=== PATIENT | male | born 1970 | race African-American/Black ===

== ENCOUNTER 2021-06-13 19:54 | Emergency (ER) | payer MEDICAID, SELFPAY ==
[2021-06-13 20:06] VITALS: BP 125/65; PULSE 69; RESP 19; TEMP 36.9; O2SAT 98; BMI 27.9
--- NOTE | 2021-06-13 20:11 | CT_ITS ---
PROCEDURE INFORMATION: Exam: CT Abdomen And Pelvis With Contrast Exam date and time: 06/13/2021 8:11 PM Age: 51 years old Clinical indication: Injury or trauma; Other: Swinging on swing and hit tree with left side body; Blunt; Generalized; Injury date: 06/13/2021; Additional info: Blunt trauma TECHNIQUE: Imaging protocol: Computed tomography of the abdomen and pelvis with contrast. Radiation optimization: All CT scans at this facility use at least one of these dose optimization techniques: automated exposure control; mA and/or kV adjustment per patient size (includes targeted exams where dose is matched to clinical indication); or iterative reconstruction. Contrast material: ISOVUE; Contrast volume: 100 ml; Contrast route: IV; COMPARISON: CR XR PELVIS 1-2V 06/13/2021 9:03 PM FINDINGS: Lungs: There are scattered chronic interstitial changes noted at the lung bases. No evidence of consolidation. No pleural effusion. Liver: The liver is normal in size and attenuation. No intrahapatic biliary dilitation. Gallbladder and bile ducts: Normal. No calcified stones. No ductal dilation. Gallbladder wall thickness is normal. Pancreas: Normal. No ductal dilation. Spleen: Normal. No splenomegaly. Granulomatous calcification of the spleen is identified. Adrenal glands: Normal. No mass. Kidneys and ureters: Normal. No hydronephrosis. Stomach and bowel: Unremarkable. No obstruction. No mucosal thickening. Small bowel mesentery is normal. Appendix: Unremarkable. Intraperitoneal space: Unremarkable. No free air. No significant fluid collection. Vasculature: Atheromatous arterial calcification identified. No abdominal aortic aneurysm. Lymph nodes: Unremarkable. No enlarged lymph nodes. Urinary bladder: Unremarkable as visualized. Reproductive: Unremarkable as visualized. Bones/joints: Degenerative changes of the spine, sacroiliac joints, and hips identified. No acute fracture. Soft tissues: There is a small umbilical hernia identified which contains portions of the omentum. IMPRESSION: No acute findings.
--- NOTE | 2021-06-13 20:11 | CT_ITS ---
PROCEDURE INFORMATION: Exam: CTA Chest With Contrast Exam date and time: 06/13/2021 9:26 PM Age: 51 years old Clinical indication: Injury or trauma; Blunt trauma (contusions or hematomas); Injury date: 06/13/2021; Patient HX: Swinging on swing and hit tree with left side body TECHNIQUE: Imaging protocol: Computed tomographic angiography of the chest with contrast. 3D rendering (Not supervised by radiologist): MIP and/or 3D reconstructed images were created by the technologist. Radiation optimization: All CT scans at this facility use at least one of these dose optimization techniques: automated exposure control; mA and/or kV adjustment per patient size (includes targeted exams where dose is matched to clinical indication); or iterative reconstruction. Contrast material: ISOVUE 370; Contrast volume: 100 ml; Contrast route: INTRAVENOUS (IV); COMPARISON: CR XR CHEST 2V 06/13/2021 8:59 PM FINDINGS: Pulmonary arteries: The pulmonary trunk, main, and branch pulmonary arteries contain no filling defects. Aorta: Unremarkable. No aortic aneurysm. No aortic dissection. Lungs: There are scattered calcified granulomas noted within the right lung. Chronic parenchymal changes are noted within both mid and lower lung zones. No evidence of alveolar consolidation. There is no evidence of pulmonary vascular congestion. Pleural spaces: Unremarkable. No pneumothorax. No pleural effusion. Heart: No cardiomegaly. No pericardial effusion. Heart RV/LV ratio: Within normal limits. Coronary arteries: There is no evidence of significant coronary artery calcifications. Mediastinal space: No evidence of mediastinal or hilar mass. Lymph nodes: There are granulomatous calcifications within unenlarged right hilar lymph nodes. Bones/joints: There is a fracture along the anterior aspect of the left 1st rib. A fracture which is mildly displaced along the lateral aspect of the left 3rd rib. There is a nondisplaced fracture of the lateral aspect of the left 5th rib. There is a nondisplaced fracture of the posterolateral aspect of the left 6th rib. There is a nondisplaced fracture posterolateral aspect of the left 7th rib. Soft tissues: Unremarkable. IMPRESSION: 1. There are fractures of the left 1st, 3rd, 5th, 6th, and 7th ribs. No evidence of underlying pneumothorax or pleural effusion. 2. Chronic parenchymal changes within both lung salcedo. No evidence of consolidation or pulmonary vascular congestion. 3. Old healed granulomatous disease noted within the right lung and right hilus.
--- NOTE | 2021-06-13 20:11 | XR_ITS ---
PROCEDURE INFORMATION: Exam: XR Chest Exam date and time: 06/13/2021 8:11 PM Age: 51 years old Clinical indication: Injury or trauma; Other: Swinging on swing and hit tree; Blunt trauma (contusions or hematomas); Injury date: 06/13/2021 TECHNIQUE: Imaging protocol: XR of the chest. Views: 2 views. COMPARISON: No relevant prior studies available. FINDINGS: Lungs: Unremarkable. No consolidation. Pleural spaces: Unremarkable. No pleural effusion. No pneumothorax. Heart/Mediastinum: Unremarkable. No cardiomegaly. Bones/joints: Unremarkable. IMPRESSION: No acute findings.
[2021-06-13 20:22] LABS: Basophils # 0.1 K/mm3 (0-0.2); Basophils % 0.5 % (0.1-2.0); Eosinophils # 0.2 K/mm3 (0.0-0.4); Eosinophils % 1.3 % (0.1-12.0); Hematocrit 46.6 % (42.0-52.0); Hemoglobin 14.5 g/dL (14.1-18.0); Lymphocytes # 1.5 K/mm3 (0.7-4.5); Lymphocytes % 11.5 % (10-50); Mean Corpuscular HGB Conc 31.1 g/dL (31.8-35.4); Mean Corpuscular Hemoglobin 28.8 pg (27.0-31.2); Mean Corpuscular Volume 92.6 fl (80-94); Mean Platelet Volume 7.8 fl (7.4-10.4); Monocytes # 0.7 K/mm3 (0.1-1.0); Monocytes % 5.2 % (1.7-9.3); Neutrophils # 10.7 K/mm3 (1.8-7.8); Neutrophils % 81.4 % (37.0-80.0); Platelet Count 326 K/mm3 (142-424); Red Blood Count 5.03 M/mm3 (4.60-6.20); Red Cell Distribution Width 15.5 % (11.5-17.5); White Blood Count 13.2 K/mm3 (4.8-10.8)
[2021-06-13 20:26] LABS: Chloride 104 mmol/L (98-107); Potassium 4.1 mmoL/L (3.5-5.1); Sodium 140 mmol/L (136-145)
[2021-06-13 20:29] LABS: Alanine Aminotransferase 26 U/L (12-78); Albumin Level 4.7 g/dl (3.5-5.0); Albumin/Globulin Ratio 1.4 (1.1-1.8); Alkaline Phosphatase 82 U/L (38-126); Anion Gap 14.1 mEq/L (5-15); Aspartate Amino Transferase 62 U/L (17-59); Bilirubin,Total 0.4 mg/dl (0.2-1.3); Blood Urea Nitrogen 14 mg/dl (9-20); Calcium 9.9 mg/dl (8.4-10.2); Carbon Dioxide 26 mmol/L (22.0-30.0); Creatinine Clearance Estimated 92 mL/min (50-200); Estimated Glomerular Filt Rate 64 ml/min (>60); GFR (African American) 78 ML/MIN (>60); Globulin 3.4 g/dL (1.3-3.2); Glucose 90 mg/dl (74-100); Lipase 44 U/L (23-300); Total Protein,Serum 8.1 g/dl (6.3-8.2)
--- NOTE | 2021-06-13 20:44 | CT_ITS ---
PROCEDURE INFORMATION: Exam: CT Head Without Contrast Exam date and time: 06/13/2021 8:44 PM Age: 51 years old Clinical indication: Injury or trauma; Other: Swinging and hit a tree; Blunt trauma (contusions or hematomas); Without loss of consciousness; Injury date: 06/13/2021; Injury details: Swingin on rope and hit tree with left head; Additional info: Collided with tree TECHNIQUE: Imaging protocol: Computed tomography of the head without contrast. 3D rendering (Not supervised by radiologist): MIP and/or 3D reconstructed images were created by the technologist. Radiation optimization: All CT scans at this facility use at least one of these dose optimization techniques: automated exposure control; mA and/or kV adjustment per patient size (includes targeted exams where dose is matched to clinical indication); or iterative reconstruction. COMPARISON: No relevant prior studies available. FINDINGS: Brain: No intracranial hemorrhage. No mass. Prominent sulcus vs encephalomalacia RIGHT occipital region. No edema. Cerebral ventricles: No hydrocephalus. Paranasal sinuses: No acute sinusitis. Mastoid air cells: No significant effusion. Orbital cavity: Unremarkable as visualized. Bones/joints: No acute fracture. Soft tissues: Minimal scalp swelling. Small calcification or foreign body along LEFT frontal scalp. IMPRESSION: No intracranial hemorrhage.
--- NOTE | 2021-06-13 20:44 | CT_ITS ---
PROCEDURE INFORMATION: Exam: CT Cervical Spine Without Contrast Exam date and time: 06/13/2021 8:44 PM Age: 51 years old Clinical indication: Injury or trauma; Other: Swinging and hit tree with left head; Blunt trauma; Injury date: 06/13/2021; Additional info: Collided with tree TECHNIQUE: Imaging protocol: Computed tomography images of the cervical spine without contrast. Radiation optimization: All CT scans at this facility use at least one of these dose optimization techniques: automated exposure control; mA and/or kV adjustment per patient size (includes targeted exams where dose is matched to clinical indication); or iterative reconstruction. COMPARISON: No relevant prior studies available. FINDINGS: Bones/joints: No acute fracture. Normal alignment. Discs/Spinal canal/Neural foramina: [id number] degenerative disc disease within mid cervical spine. Early degenerative disc disease within lower cervical spine. Mild indentation thecal sac/cord mid cervical spine. Mild indentation thecal sac/cord lower cervical spine. Thyroid: Subcentimeter nodule LEFT lobe. Lungs: Minimal bullous changes within lung apices. Soft tissues: Unremarkable. IMPRESSION: No fracture. COMMENTS: Consistent with the [employer]'s Incidental Findings Committee white paper (J Am Cornel Radiol 2015): In patients aged 35 years and older with an incidental thyroid nodule equal to or greater than 1.[address], MRI or extrathyroidal US, further evaluation with dedicated thyroid US is recommended for patients with normal life expectancy and without comorbidities. For smaller nodules without suspicious features, no further evaluation or follow up is recommended.
--- NOTE | 2021-06-13 21:05 | XR_ITS ---
PROCEDURE INFORMATION: Exam: XR Pelvis Exam date and time: 06/13/2021 9:05 PM Age: 51 years old Clinical indication: Injury or trauma; Fall; Blunt trauma (contusions or hematomas); Does not apply; Pelvic region; Injury date: 06/13/2021; Injury details: Swinging on rope swing and hit tree; Additional info: Collision with tree TECHNIQUE: Imaging protocol: XR pelvis. Views: 1 or 2 view. COMPARISON: No relevant prior studies available. FINDINGS: Bones/joints: There are periacetabular calcifications identified. These may represent unfused apophysis ease or be the result of early osteoarthritis of the hips. No acute fracture. Soft tissues: Unremarkable. IMPRESSION: No acute findings.
--- NOTE | 2021-06-13 21:11 | [facility].EDTRAUMA ---
ED Disposition Clinical Impression: Ribs, multiple fractures Qualifiers: Encounter type: initial encounter Fracture type: closed Laterality: left Qualified Code(s): S22.42XA - Multiple fractures of ribs, left side, initial encounter for closed fracture Concussion Qualifiers: Encounter type: initial encounter Loss of consciousness presence/duration: without LOC Qualified Code(s): S06.0X0A - Concussion without loss of consciousness, initial encounter Facial laceration Qualifiers: Encounter type: initial encounter Qualified Code(s): S01.81XA - Laceration without foreign body of other part of head, initial encounter Disposition: Home, Self-Care Condition on Discharge: Good Instructions: DI for Rib Fracture Additional Instructions: fluids and sutures out 8 days and see pcp for follow up Prescriptions: Ketorolac Tromethamine [Toradol 10mg tablet] 10 mg PO Q6HP PRN #10 tab MDD 40mg/day PRN Reason: Moderate To Severe Pain Prescription Printed Referrals: Ashkan Higgins [Primary Care Provider] - - Critical Care Critical Care Time: No Attestation: On 06/13/21, the high probability of a clinically significant, sudden or life threatening deterioration of the following system(s) required my full and direct attention, intervention and personal management. The time I documented below is in addition to time spent performing reported procedures but includes the following listed in this critical care notation. Medical Decision Making - Medical Records Medical records reviewed: Yes: I reviewed the patient's medical records. - Phil Inquiry Pt receiving controlled substance: No Vital Signs: 06/13/21 20:06 Temperature 98.5 F Temperature Source Oral Pulse Rate [Right Brachial] 69 Respiratory Rate 19 Blood Pressure [Right Arm] 125/65 Blood Pressure Mean [Right Arm] 85 Blood Pressure Source [Right Arm] Automatic Cuff Blood Pressure Position [Right Arm] Sitting 02 Sat by Pulse Oximetry 98 Oxygen Delivery Method Room Air - Lab Data Lab results reviewed: Yes: I reviewed the patient's lab results. Lab Results 06/13/21 20:11: WBC 13.2 H, RBC 5.03, Hgb 14.5, Hct 46.6, MCV 92.6, MCH 28.8, MCHC 31.1 L, RDW 15.5, Plt Count 326, MPV 7.8, Neut % (Auto) 81.4 H, Lymph % (Auto) 11.5, [place] % (Auto) 5.2, Eos % (Auto) 1.3, Baso % (Auto) 0.5, Neut # (Auto) 10.7 H, Lymph # (Auto) 1.5, [place] # (Auto) 0.7, Eos # (Auto) 0.2, Baso # (Auto) 0.1 06/13/21 20:11: Sodium 140, Potassium 4.1, Chloride 104, Carbon Dioxide 26, Anion Gap 14.1, BUN 14, Creatinine 1.20, Estimated Creat Clear 92, Estimated GFR 64, Est GFR ( Amer) 78, Glucose 90, Calcium 9.9, Total Bilirubin 0.4, AST 62 H, ALT 26, Alkaline Phosphatase 82, Total Protein 8.1, Albumin 4.7, Globulin 3.4 H, Albumin/Globulin Ratio 1.4, Lipase 44 Result diagrams: 06/13/21 20:11 06/13/21 20:11 Orders (Tests/Meds): ED MEDICATIONS Generic Name Dose Route Start Last Admin Trade Name Freq PRN Reason Stop Dose Admin Sodium Chloride 10 ml 06/13/21 22:07 06/13/21 21:30 Sodium Chloride 0.9% 10ml Syr (Rad Only) IV 07/13/21 22:06 10 ml NEEDED PRN Administration Maintain IV Site Discontinued Medications Generic Name Dose Route Start Last Admin Trade Name Freq PRN Reason Stop Dose Admin Acetaminophen/Codeine Phosphate 1 maria [place] carmen 06/13/21 22:48 Acetaminophen 300mg W/Codeine 30mg Take Home Pack (6) PO 06/13/21 22:49 ONCE ONE Iopamidol 100 ml 06/13/21 22:07 06/13/21 22:09 Iopamidol-370 (76%);100ml Bottle IV 06/13/21 22:08 100 ml ONCE ONE Administration Ketorolac Tromethamine 30 mg 06/13/21 22:48 Ketorolac 30mg/Ml Vial IV 06/13/21 22:49 ONCE ONE Sodium Chloride 40 ml 06/13/21 22:07 06/13/21 22:09 0.9 % Sodium Chloride 50 Ml Vial IV 06/13/21 22:08 40 ml ONCE ONE Administration ORDERS Category Date Time Status CT abdomen pelvis w con Stat Cat Scan 06/13/21 20:[address] cervical spine wo con Stat Cat Scan
[2021-06-13 23:02] VITALS: BP 126/62; PULSE 70; RESP 17; TEMP 36.8; O2SAT 98
== END 2021-06-13 23:04 | disposition home or self-care (01) ==
PROVIDERS: Emergency Provider Emergency Medicine; PCP Neurological Surgery
DX: S01.81XA Laceration without foreign body of other part of head, initial encounter (principal); S06.0X0A Concussion without loss of consciousness, initial encounter; S22.42XA Multiple fractures of ribs, left side, initial encounter for closed fracture; W22.09XA Striking against other stationary object, initial encounter; Y92.89 Other specified places as the place of occurrence of the external cause; F17.210 Nicotine dependence, cigarettes, uncomplicated
CPT/HCPCS: 12011; 70450; 71046; 71275; 72125; 72170; 74177; 80053; 83690; 85025; 96374; 99282; Q9967

== ENCOUNTER 2022-06-26 19:03 | Emergency (ER) | payer MEDICAID, SELFPAY ==
[2022-06-26] VITALS (7 sets, daily range): BP systolic 127–147; BP diastolic 74–87; PULSE 55–80; RESP 16–24; TEMP 36.5–36.6; O2SAT 97–100; BMI 28.4
--- NOTE | 2022-06-26 19:44 | CT_ITS ---
PROCEDURE INFORMATION: Exam: CTA Chest With Contrast Exam date and time: 06/26/2022 7:59 PM Age: 52 years old Clinical indication: Injury or trauma; Fall; Blunt trauma (contusions or hematomas); Additional info: Fall rib pain bilateral TECHNIQUE: Imaging protocol: Computed tomographic angiography of the chest with contrast. 3D rendering (Not supervised by radiologist): MIP and/or 3D reconstructed images were created by the technologist. Radiation optimization: All CT scans at this facility use at least one of these dose optimization techniques: automated exposure control; mA and/or kV adjustment per patient size (includes targeted exams where dose is matched to clinical indication); or iterative reconstruction. Contrast material: ISOVUE; Contrast volume: 100 ml; Contrast route: INTRAVENOUS (IV); COMPARISON: SD CT ANGIO CHEST PE PROTOCOL 06/13/2021 9:26 PM FINDINGS: Pulmonary arteries: Normal. No pulmonary emboli. Aorta: Unremarkable. No aortic aneurysm. No aortic dissection. Lungs: The lungs are negative for consolidation or dominant mass. Patchy interstitial and ground-glass infiltrates are no longer present. Pleural spaces: No evidence of pneumothorax or effusion. Heart: Unremarkable. No cardiomegaly. No pericardial effusion. Mediastinal space: Calcified granulomas within the mediastinum and hilar structures. Lymph nodes: Prominent lymph nodes in the left axillary and to a lesser extent right axillary chains. Unchanged compared to the prior studies. Bones/joints: Degenerative spondylosis, rotoscoliosis and facet arthropathy within the spine. Fractures of the left 1st, 3rd, 5th, 6th, and 7th ribs have resolved. Soft tissues: Unremarkable. IMPRESSION: 1. No evidence to confirm acute process. 2. Prominent lymph nodes in the left axillary and to a lesser extent right axillary chains. Unchanged compared to the prior studies. 3. Degenerative spondylosis, rotoscoliosis and facet arthropathy within the spine. 4. Fractures of the left 1st, 3rd, 5th, 6th, and 7th ribs have resolved. 5. Patchy interstitial and ground-glass infiltrates are no longer present.
--- NOTE | 2022-06-26 19:44 | CT_ITS ---
PROCEDURE INFORMATION: Exam: CTA Abdomen and Pelvis With Contrast Exam date and time: 06/26/2022 7:59 PM Age: 52 years old Clinical indication: Injury or trauma; Fall; Blunt trauma; Lower abdominal or back area; Bilateral TECHNIQUE: Imaging protocol: Computed tomographic angiography of the abdomen and pelvis with contrast. 3D rendering (Not supervised by radiologist): MIP and/or 3D reconstructed images were created by the technologist. Radiation optimization: All CT scans at this facility use at least one of these dose optimization techniques: automated exposure control; mA and/or kV adjustment per patient size (includes targeted exams where dose is matched to clinical indication); or iterative reconstruction. Contrast material: ISOVUE; Contrast volume: 100 ml; Contrast route: INTRAVENOUS (IV); COMPARISON: CT ABDOMEN PELVIS W CON 06/13/2021 9:26 PM FINDINGS: Aorta: No aortic aneurysm. No aortic dissection. Celiac trunk and mesenteric arteries: No occlusion or significant stenosis. Renal arteries: No occlusion or significant stenosis. Right iliac arteries: No occlusion or significant stenosis. Left iliac arteries: No occlusion or significant stenosis. Liver: No mass. Gallbladder and bile ducts: Unremarkable. No calcified stones. No ductal dilation. Pancreas: Unremarkable. No mass. No ductal dilation. Spleen: Unremarkable. No splenomegaly. Adrenal glands: Unremarkable. No mass. Kidneys and ureters: Unremarkable. No solid mass. No hydronephrosis. Stomach and bowel: Unremarkable. No obstruction. No mucosal thickening. Appendix: No evidence of appendicitis. Intraperitoneal space: Unremarkable. No free air. No significant fluid collection. Lymph nodes: Unremarkable. No enlarged lymph nodes. Urinary bladder: Unremarkable. No mass. Reproductive: Unremarkable as visualized. Bones/joints: No acute fracture. Soft tissues: Unremarkable. IMPRESSION: 1. No evidence for acute vascular injury on CTA of abdomen and pelvis. 2. No evidence of solid organ injury is detected.
--- NOTE | 2022-06-26 19:44 | CT_ITS ---
PROCEDURE INFORMATION: Exam: CT Thoracic Spine Without Contrast Exam date and time: 06/26/2022 7:55 PM Age: 52 years old Clinical indication: Injury or trauma; Fall; Blunt trauma (contusions or hematomas) TECHNIQUE: Imaging protocol: Computed tomography of the thoracic spine without contrast. Radiation optimization: All CT scans at this facility use at least one of these dose optimization techniques: automated exposure control; mA and/or kV adjustment per patient size (includes targeted exams where dose is matched to clinical indication); or iterative reconstruction. COMPARISON: CT ABDOMEN PELVIS W CON 06/13/2021 9:26 PM FINDINGS: Bones/joints: No evidence of acute displaced cortical disruption or spondylolisthesis is identified on CT of thoracic spine. Mild diffuse degenerative spondylosis, rotoscoliosis and facet arthropathy. No evidence of central or foraminal stenosis. Soft tissues: Unremarkable. Pleural spaces: Lungs are negative for evidence of consolidation or pneumothorax. Mediastinum: Scattered calcified granulomas within the mediastinum and hilar structures. IMPRESSION: 1. No evidence of acute displaced cortical disruption or spondylolisthesis is identified on CT of thoracic spine. 2. Mild diffuse degenerative disc disease, rotoscoliosis and facet arthropathy. 3. No evidence of central or foraminal stenosis. 4. Lungs are negative for evidence of consolidation or pneumothorax. 5. Scattered calcified granulomas within the mediastinum and hilar structures.
--- NOTE | 2022-06-26 19:44 | XR_ITS ---
PROCEDURE INFORMATION: Exam: XR Chest Exam date and time: 06/26/2022 8:01 PM Age: 52 years old Clinical indication: Pain and injury or trauma; Fall; Blunt trauma (contusions or hematomas); Right-sided and left-sided; Additional info: Fall, R thoracic cage pain TECHNIQUE: Imaging protocol: Radiologic exam of the chest. Views: 1 view. COMPARISON: CT ANGIO CHEST 06/26/2022 7:59 PM FINDINGS: Lungs: Unremarkable. No consolidation. Pleural spaces: Unremarkable. No pleural effusion. No pneumothorax. Heart/Mediastinum: Unremarkable. No cardiomegaly. Bones/joints: Remote left rib fractures. IMPRESSION: No acute findings.
--- NOTE | 2022-06-26 19:48 | [facility].EDGENADL ---
Discharge Plan Disposition Patient Disposition: Home, Self-Care Condition: Good Prescriptions Prescriptions: New methocarbamol 500 mg tablet 500 mg PO .tid prn Qty: 20 0RF Referrals Follow up/Referrals: Provider,Referral, [Primary Care Provider] - See instructions Activity Restrictions/Add. Instructions Additional Instructions/Restrictions: Please continue to monitor your symptoms at home. If your condition worsens or any other concerns arise, please return to the emergency department for reassessment. Clinical Impressions Clinical Impression: Fall, Contusion, Pain in rib Instructions Patient Instructions: DI for Acute Pain -- Adult Discharge ED Provider: Gus Lees General Adult HPI <Gus Lees MD - Last Filed: 06/26/22 20:42> General Chief complaint: PAIN Stated complaint: ao10/05AT HOME INJURED BACK Time Seen by Provider: 06/26/22 19:15 Mode of Arrival: Ambulatory Source of Information: Patient Limitations: No Limitations Description of Symptoms (Recalled from ER Triage Doc. by RN): 52 yo male presents with complaints of ruq anterior and posterior rib associated area pain that he describes as 8/10 with movement and sharp. Denies radiation. Patient goes on to explain he fell two days [employer] with direct impact from standing position to a piece of wood laying on the ground . He stated it was tolerable till last night when he reached for something and heard a 'pop'. Noting an intense increase in pain. Abd soft, NT/ND. BS + x 4 quads. Denies past medical history except for neuropathy for which he takes GABAPENTIN 600mg TID. History of Present Illness HPI narrative: Patient is a 52-year-old male with no significant past medical history who presents emergency department for evaluation of right inferior thoracic cage, right flank pain, right posterior mid back pain. Patient states that he was watching some squirrels when he fell backwards onto a piece of wood approximately 4 inches in diameter striking his right flank, right inferior thoracic cage, right posterior thoracic cage, right mid back. Patient has been ambulatory since the incident, denies blood thinners. Denies loss of consciousness or other traumatic injuries. Patient has associated pleuritic pain in his right inferior thoracic cage worse with taking a deep breath. No other acute complaints at this time. Related Data Previous Rx's Medication Instructions Recorded methocarbamol 500 mg tablet 500 mg PO .tid prn #20 tabs 06/26/22 Allergies Allergy/AdvReac Type Severity Reaction Status Date / Time No Known Allergies Allergy Verified 03/21/19 00:12 PFSH <Gus Lees MD - Last Filed: 06/26/22 20:42> PFSH 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 Smoking Status: Never smoker alcohol intake: never current occupational status: unemployed Travel in the last 8 weeks: None <Gus Lees MD - Last Filed: 06/26/22 20:42> ROS Obtained: Yes All systems reviewed & no additional complaints except as documented Physical Exam <Gus Lees MD - Last Filed: 06/26/22 20:42> General General appearance: alert and in no apparent distress Head Head exam: atraumatic and normocephalic Eye Eye exam: Present PERRL and EOMI ENT ENT exam: Present mucous membranes moist Neck Neck exam: Present normal inspection Chest Chest inspection: Present normal inspection and symmetric chest wall rise Respiratory Respiratory exam: Present normal lung sounds bilaterally and other (Tachypnea); Absent respiratory distress Cardiovascular Cardiovascular exam: Present regular rate and normal rhythm Abdominal Exam Abdominal exam: Present soft, tenderness (Right flank) and other Extremities Exam Extremities exam: Present normal inspection Back Exam Back exam: Present tenderness (Right posterior inferior thoracic cage, right thoracic spine) Neurological Exam Neurological exam: Present alert, oriented X3, CN II-XII intact and normal gait Psychiatric Psychiatric e
--- NOTE | 2022-06-26 19:51 | PC.NURSE ---
[facility] at for CXR
[2022-06-26 19:55] LABS: Basophils # 0.1 K/mm3 (0-0.2); Basophils % 1.1 % (0.1-2.0); Eosinophils # 0.2 K/mm3 (0.0-0.4); Eosinophils % 3.4 % (0.1-12.0); Hematocrit 46.5 % (42.0-52.0); Hemoglobin 15.1 g/dL (14.1-18.0); Lymphocytes # 2.2 K/mm3 (0.7-4.5); Lymphocytes % 36.3 % (10-50); Mean Corpuscular HGB Conc 32.5 g/dL (31.8-35.4); Mean Corpuscular Hemoglobin 28.9 pg (27.0-31.2); Mean Platelet Volume 6.7 fl (7.4-10.4); Monocytes # 0.3 K/mm3 (0.1-1.0); Monocytes % 4.9 % (1.7-9.3); Neutrophils # 3.3 K/mm3 (1.8-7.8); Neutrophils % 54.3 % (37.0-80.0); Platelet Count 311 K/mm3 (142-424); Red Blood Count 5.23 M/mm3 (4.60-6.20); White Blood Count 6.1 K/mm3 (4.8-10.8)
[2022-06-26 20:12] LABS: Alanine Aminotransferase 37 U/L (12-78); Albumin Level 4.3 g/dl (3.5-5.0); Albumin/Globulin Ratio 1.4 (1.1-1.8); Alkaline Phosphatase 77 U/L (38-126); Anion Gap 14.1 mEq/L (5-15); Aspartate Amino Transferase 46 U/L (17-59); Blood Urea Nitrogen 16 mg/dl (9-20); Calcium 9.3 mg/dl (8.4-10.2); Carbon Dioxide 28 mmol/L (22.0-30.0); Chloride 103 mmol/L (98-107); Creatinine Clearance Estimated 111 mL/min (50-200); Estimated Glomerular Filt Rate 79 ml/min (>60); GFR (African American) 95 ML/MIN (>60); Glucose 112 mg/dl (74-100); Potassium 4.1 mmoL/L (3.5-5.1); Sodium 141 mmol/L (136-145); Total Protein,Serum 7.3 g/dl (6.3-8.2)
[2022-06-26 20:25] LABS: Microscopic, Urine URINE MICROSCOPIC (MICROSCOPIC)
[2022-06-26 20:25] LABS: Bilirubin,Total < 0.1 mg/dl (0.2-1.3)
[2022-06-26 20:34] LABS: Appearance,Urine CLEAR (Clear); Bilirubin,Urine Negative (Negative); Blood, Urine Negative (Negative); Color,Urine YELLOW (Yellow); Glucose,Urine (UA) Negative (Negative); Ketones,Urine Negative (Negative); Leukocyte Esterase,Urine Negative (Negative); Nitrate,Urine Negative (Negative); Protein,Urine TRACE (Negative); Urobilinogen,Urine 0.2 EU/dl (0.2)
[2022-06-26 20:48] LABS: Squamous Epithelial Cell,Urine Occasional #/hpf (0-5); WBC,Urine Occasional #/hpf (0-3)
--- NOTE | 2022-06-26 22:06 | PC.NURSE ---
Dr. Lorenzo at [facility]
== END 2022-06-26 22:23 | disposition home or self-care (01) ==
PROVIDERS: Emergency Provider Emergency Medicine
DX: S20.211A Contusion of right front wall of thorax, initial encounter (principal); W18.39XA Other fall on same level, initial encounter
CPT/HCPCS: 71045; 71275; 72128; 74174; 80053; 81001; 85025; 96374; 99285; Q9967

== ENCOUNTER 2023-09-08 21:49 | Emergency (ER) | payer MEDICAID, SELFPAY ==
--- NOTE | 2023-09-08 21:53 | CT_ITS ---
PROCEDURE INFORMATION: Exam: CT Head Without Contrast Exam date and time: 09/08/2023 10:03 PM Age: 53 years old Clinical indication: Injury or trauma; Other: Tree branch fell and hit patient on top of head. Blunt trauma (contusions or hematomas); Consciousness not specified; Additional info: Head injury TECHNIQUE: Imaging protocol: Computed tomography of the head without contrast. Total images: 542 Radiation optimization: All CT scans at this facility use at least one of these dose optimization techniques: automated exposure control; mA and/or kV adjustment per patient size (includes targeted exams where dose is matched to clinical indication); or iterative reconstruction. REPORTING DATA: Count of CT and Cardiac NM exams in prior 12 months: This patient has received 0 known CTs and 0 known cardiac nuclear medicine studies in the 12 months prior to the current study. COMPARISON: CT HEAD/BRAIN WO CON 06/13/2021 9:18 PM FINDINGS: Brain: No acute intracranial hemorrhage, midline shift, or mass. Nichols-white interface is maintained. Basilar cisterns are preserved. Small focus of encephalomalacia at the base of the right occipital lobe, axial image 19, unchanged. Mild scattered subcortical white matter hypodensity compatible with remote small vessel ischemic changes. Cerebral ventricles: No ventriculomegaly. Paranasal sinuses: Visualized sinuses are unremarkable. No fluid levels. Mastoid air cells: Visualized mastoid air cells are well aerated. Bones/joints: No skull fracture or concerning bone lesions. Soft tissues: Small right posterior scalp hematoma. IMPRESSION: 1. No acute intracranial process. 2. Small right posterior scalp hematoma. 3. No skull fracture. 4. Mild chronic intracranial findings.
--- NOTE | 2023-09-08 21:53 | CT_ITS ---
PROCEDURE INFORMATION: Exam: CT Cervical Spine Without Contrast Exam date and time: 09/08/2023 10:03 PM Age: 53 years old Clinical indication: Injury or trauma; Other: Tree branch fell and hit patient on top of his head. Blunt trauma; Additional info: Head injury TECHNIQUE: Imaging protocol: Computed tomography of the cervical spine without contrast. Total images: 605 Radiation optimization: All CT scans at this facility use at least one of these dose optimization techniques: automated exposure control; mA and/or kV adjustment per patient size (includes targeted exams where dose is matched to clinical indication); or iterative reconstruction. REPORTING DATA: Count of CT and Cardiac NM exams in prior 12 months: This patient has received 0 known CTs and 0 known cardiac nuclear medicine studies in the 12 months prior to the current study. COMPARISON: CT CERVICAL SPINE WO CON 06/13/2021 9:21 PM FINDINGS: Bones/joints: Straightened cervical lordosis. Vertebral body height and alignment is maintained. The base of the dens and the C1 and C2 articulations are preserved with mild degenerative arthropathy. The cervicooccipital junction is intact. The facet joints are appropriately aligned. Posterior elements are maintained. Mild multilevel degenerative disc disease throughout the cervical spine greatest at C3-C4,C4-C5 and C7-T1. Small posterior projecting disc osteophyte complex C3-C4, C4-C5, C5-C6 and C7-T1. No critical spinal canal stenosis. No concerning bone lesions. Prevertebral and retropharyngeal spaces: No prevertebral soft tissue swelling. Lungs: Lung apices are clear with a few incidental biapical subpleural blebs. Thyroid: 12 mm left thyroid nodule or cyst. Consider follow-up nonemergent thyroid ultrasound. Soft tissues: Unremarkable soft tissues of the neck. IMPRESSION: 1. No acute cervical fracture or traumatic subluxation. 2. Straightened cervical lordosis from position or muscle spasm. 3. Mild multilevel degenerative disc disease. 4. 12 mm left thyroid nodule. Consider follow-up nonemergent thyroid ultrasound. COMMENTS: Consistent with the [employer] [place]'s Incidental Findings Committee white paper (J Am Cornel Radiol 2015): In patients aged 35 years and older with an incidental thyroid nodule equal to or greater than 1.[address], MRI or extrathyroidal US, further evaluation with dedicated thyroid US is recommended for patients with normal life expectancy and without comorbidities. For smaller nodules without suspicious features, no further evaluation or follow up is recommended.
[2023-09-08 21:59] VITALS: BP 129/105; PULSE 65; RESP 16; TEMP 37; O2SAT 97; BMI 26.9
--- NOTE | 2023-09-08 22:01 | HMH.EDGENADL ---
Discharge Plan Disposition Patient Disposition: Home, Self-Care Condition: Good Prescriptions Prescriptions: New fluticasone propionate [Flonase Allergy Relief] 50 mcg/actuation spray,suspension 1 spray intranasal BID PRN (Reason: allergy symptoms) Qty: 16 0RF Rx Instructions: administer into each nostril Zyrtec 10 mg capsule 10 mg PO DAILY Qty: 30 0RF Referrals Follow up/Referrals: Provider,Referral, MD [Primary Care Provider] - See instructions Activity Restrictions/Add. Instructions Additional Instructions/Restrictions: You were evaluated in the emergency department today. You were found to have a hematoma on your scalp, but no other acute issues. You do have an incidental finding of a thyroid nodule, for which we recommend follow-up with your primary care provider. Take Tylenol and ibuprofen at home as needed for pain. Return to the emergency department for new or worsening symptoms Clinical Impressions Clinical Impression: Hematoma of scalp, Closed head injury, Thyroid nodule, Acute ADILENE (middle ear effusion) Instructions Patient Instructions: DI for Closed Head Injury, DI for Ear Pain-Adult Discharge ED Provider: [place] [facility] HPI General Chief complaint: Head Injury Stated complaint: AO 09/08, knot on head Time Seen by Provider: 09/08/23 21:53 History of Present Illness HPI narrative: This patient is a 53-year-old male who denies significant past medical history presenting to the emergency department for evaluation with concern for closed head injury. Patient reports that he was outside doing yard work when a very large tree branch fell, striking him on top of the head. He developed significant mount of swelling to the top of his head as well as pain. He did not lose consciousness. He denies any other concerns or complaints. He denies any vision changes, numbness, tingling, or other issues. He does not take anticoagulation. He was well prior to this. Related Data Previous Rx's Medication Instructions Recorded cetirizine 10 mg capsule (Zyrtec) 10 mg PO DAILY #30 caps 09/08/23 fluticasone propionate 50 1 spray intranasal BID PRN allergy 09/08/23 mcg/actuation nasal symptoms #16 grams spray,suspension (Flonase Allergy Relief) Allergies Allergy/AdvReac Type Severity Reaction Status Date / Time No Known Allergies Allergy Verified 09/08/23 22:10 [facility] Disclaimer: The information contained in this section may have been updated after the patient was seen, as this information can be updated by other users. 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 Smoking Status: Current every day smoker tobacco type: cigarettes packs per day: 1 alcohol intake: never current occupational status: unemployed Travel in the last 8 weeks: None ROS Obtained: Yes All systems reviewed & no additional complaints except as documented Physical Exam General General appearance: alert and in no apparent distress Head Head exam: other (Hematoma to the right parietal scalp) Eye Eye exam: Present normal appearance, PERRL and EOMI ENT ENT exam: Present normal exam, normal oropharynx, mucous membranes moist and normal external ear exam Neck Neck exam: Present normal inspection, full ROM and trachea midline; Absent tenderness Chest Chest inspection: Present normal inspection and symmetric chest wall rise; Absent tenderness Respiratory Respiratory exam: Present normal lung sounds bilaterally; Absent respiratory distress, wheezes, stridor or accessory muscle use Cardiovascular Cardiovascular exam: Present regular rate and normal rhythm Abdominal Exam Abdominal exam: Present soft; Absent distention, tenderness or guarding Extremities Exam Extremities exam: Present normal inspection, full ROM and normal capillary refill; Absent tenderness or edema Back Exam Back exam: Present normal inspection and full ROM; Absent tenderness Neurological Exam Neurolog
[2023-09-08 22:30] VITALS: BP 126/76; PULSE 63; RESP 20; O2SAT 97
--- NOTE | 2023-09-08 22:44 | PC.NURSE ---
C-Collar remoed at this time, per MD Hutchinson.
[2023-09-08 22:56] VITALS: BP 126/76; PULSE 59; RESP 16; TEMP 36.8; O2SAT 95
== END 2023-09-08 22:57 | disposition home or self-care (01) ==
PROVIDERS: Emergency Provider Emergency Medicine
DX: S09.8XXA Other specified injuries of head, initial encounter (principal); S00.03XA Contusion of scalp, initial encounter; H65.193 Other acute nonsuppurative otitis media, bilateral; E04.1 Nontoxic single thyroid nodule; F17.210 Nicotine dependence, cigarettes, uncomplicated; W20.8XXA Other cause of strike by thrown, projected or falling object, initial encounter
CPT/HCPCS: 70450; 72125; 99285

== ENCOUNTER 2024-03-12 18:21 | Emergency (ER) | payer MEDICAID, SELFPAY ==
--- NOTE | 2024-03-12 19:25 | XR_ITS ---
PROCEDURE INFORMATION: Exam: XR Left Hand Exam date and time: 03/12/2024 7:44 PM Age: 53 years old Clinical indication: Injury or trauma; Other: Punched an object; Swelling (edema); Hand; Left; Additional info: Pinky finger pain TECHNIQUE: Imaging protocol: Radiologic exam of the left hand. Views: 3 or more views. COMPARISON: No relevant prior studies available. FINDINGS: Bones/joints: Volarly angulated 5th metacarpal neck fracture. Chronic posttraumatic changes of the 5th metacarpal shaft. Soft tissues: Ulnar hand soft tissue swelling. IMPRESSION: Volarly angulated 5th metacarpal neck fracture.
[2024-03-12 19:45] VITALS: BP 117/42; PULSE 58; RESP 18; TEMP 36.6; O2SAT 97; BMI 25.9
--- NOTE | 2024-03-12 20:09 | EXP.UTC ---
Discharge Plan Disposition Patient Disposition: Home, Self-Care Condition: Good Prescriptions Prescriptions: No Action fluticasone propionate [Flonase Allergy Relief] 50 mcg/actuation spray,suspension 1 spray intranasal BID PRN (Reason: allergy symptoms) Qty: 16 0RF Rx Instructions: administer into each nostril Zyrtec 10 mg capsule 10 mg PO DAILY Qty: 30 0RF Referrals Follow up/Referrals: Provider,Referral, MD [Primary Care Provider] - See instructions Activity Restrictions/Add. Instructions Additional Instructions/Restrictions: rest Ice with cold pack for 20 minutes remove may repeat for comfort every hour splint for support and swelling no less in the shower. Be sure not too tight but not to lose either Elevate with arm above your heart as much as possible to help reduce swelling and therefore pain Ibuprofen every 6 hours as needed for pain or inflammation. If needs something more you can take Tylenol every 4 hours as needed as long as her primary care has told he was okayed for you to take both. Follow-up immediately if new or worsening symptoms or no noticeable improvement over the next 3-5 days. call ortho tomorrow for appointment jean Clinical Impressions Clinical Impression: Hand joint pain Qualifiers: Laterality: left Qualified Code(s): M25.542 - Pain in joints of left hand Instructions Patient Instructions: Boxer's Fracture Discharge ED [facility] [place] General Stated complaint: AO 03/10/23 injury to left hand Mode of Arrival: Ambulatory Source of Information: Patient Limitations: No Limitations Time Seen by Provider: 03/12/24 20:09 Description of Symptoms (Recalled from Triage Doc. by RN): Pt's symptoms are pain in left hand. HEENT Symptoms (Recalled from RN notes): Yes Resp Symptoms (Recalled from RN notes): No Skin Symptoms (Recalled from RN notes): No MS Symptoms (Recalled from RN notes): No Functional Status (Recalled from RN notes): n/a History of Present Illness Provider Complaint: 53 yr old male presents for left hand pain. pt states he punched something metal 2 days ago and hand still hurts Related Data Previous Rx's Medication Instructions Recorded cetirizine 10 mg capsule (Zyrtec) 10 mg PO DAILY #30 caps 09/08/23 fluticasone propionate 50 1 spray intranasal BID PRN allergy 09/08/23 mcg/actuation nasal symptoms #16 grams spray,suspension (Flonase Allergy Relief) Allergies Allergy/AdvReac Type Severity Reaction Status Date / Time No Known Allergies Allergy Verified 03/12/24 19:57 Worker's Comp Is this a Worker's Comp case?: No [facility] Disclaimer: The information contained in this section may have been updated after the patient was seen, as this information can be updated by other users. 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) Smoking Status: Current every day smoker tobacco type: cigarettes packs per day: 1 alcohol intake: never current occupational status: unemployed Travel in the last 8 weeks: None ROS Obtained: Yes All systems reviewed & no additional complaints except as documented Constitutional Constitutional: Reports system reviewed and no additional complaints, except as documented Eyes Eyes: Reports system reviewed and no additional complaints, except as documented ENT Ears, Nose, Mouth, and Throat: Reports system reviewed and no additional complaints, except as documented Cardiovascular Cardiovascular: Reports system reviewed and no additional complaints, except as documented Respiratory Respiratory: Reports system reviewed and no additional complaints, except as documented Musculoskeletal Musculoskeletal: Reports system reviewed and no additional complaints, except as documented, Reports as per HPI, Reports arthralgias, Reports joint swelling, Reports limited range of motion and Reports small joint pain in the hands Integumentary/Breasts Skin/Breast: Reports system reviewed and no additional complaints, except as documented Neurologic Neurologic: Reports system reviewed and no additional complaints, except as documented Endocrine Endocrine: Reports system reviewed and no additional complaints, except as documented Hematologic/Lymphatic Henatologic/Lymphatic: Reports system reviewed and no additional complaints, except as documented Allergic/Immunologic Allergic/Immunologic: Reports system reviewed and no additional complaints, except as documented Physical Exam General General appearance: alert and in no apparent distress Eye Eye exam: Present normal appearance Respiratory Respiratory exam: Present normal lung sounds bilaterally Cardiovascular Cardiovascular exam: Present regular rate and normal rhythm Expanded Upper Extremity Exam Left: Hand exam: Present tenderness and swelling Hand L/R back image: 1. tender,swollen Vascular exam: Normal capillary refill Neurological Exam Neurological exam: Present alert and oriented X3 Skin Skin exam: Present warm and intact Medical Decision Making Medical Records Medical records reviewed: Yes I reviewed the patient's medical records. Phil Inquiry Pt receiving controlled substance: No Phil was queried for this patient: No Vital Signs: 03/12/24 19:45 Temperature 97.9 F Temperature Source Oral Pulse Rate [Right Radial] 58 L Respiratory Rate 18 Blood Pressure [Right Arm] 117/42 L Blood Pressure Mean [Right Arm] 67 Blood Pressure Source [Right Arm] Automatic Cuff Blood Pressure Position [Right Arm] Sitting 02 Sat by Pulse Oximetry 97 Oxygen Delivery Method Room Air Orders (Tests/Meds): ORDERS Category Date Time Status Hand XR left minimum 3 views [XR hand LT min 3V] Stat Exams 03/12/24 19:25 Ordered Radiology Data #1: Image(s): Hand Image Reviewed: Yes I reviewed the patient's radiology image Preliminary Findings: Abnormal Physician Consults Physician Consulted: dr mahan Time: 20:13 Reason -: Orthopedic Eval/Care Comment/Response: ulnar radial gutter splint call office for appointment
[2024-03-12 21:27] VITALS: BP 117/42; PULSE 58; RESP 18; TEMP 36.6; O2SAT 97
== END 2024-03-12 21:27 | disposition home or self-care (01) ==
PROVIDERS: Emergency Provider Nurse Practitioner Family
DX: W22.8XXA Striking against or struck by other objects, initial encounter; S62.337A Displaced fracture of neck of fifth metacarpal bone, left hand, initial encounter for closed fracture; M25.542 Pain in joints of left hand
CPT/HCPCS: 73130; 99204; 99212; G0463

== ENCOUNTER 2024-03-15 18:03 | Emergency (ER) | payer MEDICAID, SELFPAY ==
[2024-03-15 18:15] VITALS: BP 136/78; PULSE 81; RESP 18; TEMP 36.7; O2SAT 97; BMI 24.2
[2024-03-15 18:22] VITALS: BP 136/78; PULSE 81; RESP 18; TEMP 36.7; O2SAT 97
== END 2024-03-15 18:25 | disposition home or self-care (01) ==
LOC: UTC 18:06
PROVIDERS: Emergency Provider Nurse Practitioner Family
DX: Z48.02 Encounter for removal of sutures (principal)

== ENCOUNTER 2024-09-22 13:31 | Emergency (ER) | payer MEDICAID, SELFPAY ==
[2024-09-22 15:00] VITALS: BP 136/89; PULSE 76; RESP 19; TEMP 36.8; O2SAT 98; BMI 25.5
--- NOTE | 2024-09-22 15:44 | EXP.UTC ---
Discharge Plan Disposition Patient Disposition: Home, Self-Care Condition: Good Prescriptions Prescriptions: New doxycycline hyclate 100 mg tablet 100 mg PO BID 10 Days Qty: 20 0RF No Action fluticasone propionate [Flonase Allergy Relief] 50 mcg/actuation spray,suspension 1 spray intranasal BID PRN (Reason: allergy symptoms) Qty: 16 0RF Rx Instructions: administer into each nostril Zyrtec 10 mg capsule 10 mg PO DAILY Qty: 30 0RF Referrals Follow up/Referrals: Provider,Referral, MD [Primary Care Provider] - See instructions Activity Restrictions/Add. Instructions Additional Instructions/Restrictions: Establish care with PCP. Will possible need small surgical procedure to drain abscess. Take antibiotics as prescribed. Clinical Impressions Clinical Impression: Perineal abscess Instructions Patient Instructions: DI for Skin Abscess Print Language Print Language: [place] Discharge ED Provider: Louise [place] [facility] [place] Stated complaint: boil on buttox Mode of Arrival: Ambulatory Source of Information: Patient Limitations: No Limitations Time Seen by Provider: 09/22/24 15:42 Description of Symptoms (Recalled from Triage Doc. by RN): PATIENT C/O A BUMP THAT'S POSSIBLY INFECTED BETWEEN HIS BUTTOCK AREA AND SCROTUM FOR APPROX 4 MONTHS HEENT Symptoms (Recalled from RN notes): No Resp Symptoms (Recalled from RN notes): No Skin Symptoms (Recalled from RN notes): Yes MS Symptoms (Recalled from RN notes): No Functional Status (Recalled from RN notes): WNL History of Present Illness Provider Complaint: Pt reports that for the past 4 months he has had a spot between his rectum and scrotum that will go from being hard and sore to rupturing and bleeding with pus drainage. He states that right now it is hard and painful. Related Data Previous Rx's ?Medication ?Instructions ?Recorded cetirizine 10 mg capsule (Zyrtec) 10 mg PO DAILY #30 caps 09/08/23 fluticasone propionate 50 1 spray intranasal BID PRN allergy 09/08/23 mcg/actuation nasal symptoms #16 grams spray,suspension (Flonase Allergy Relief) doxycycline hyclate 100 mg tablet 100 mg PO BID 10 days #20 tabs 09/22/24 Allergies Allergy/AdvReac Type Severity Reaction Status Date / Time No Known Allergies Allergy Verified 03/12/24 19:57 Worker's Comp Is this a Worker's Comp case?: No PFSH PFSH Disclaimer: The information contained in this section may have been updated after the patient was seen, as this information can be updated by other users. 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: No Do you have any diarrhea?: No Are you experiencing any unusual bleeding?: No Do you have any muscle aches/pain?: No Do you have any abdominal pain?: No Are you experiencing loss of taste or smell?: No ROS Obtained: Yes All systems reviewed & no additional complaints except as documented Constitutional Constitutional: Reports system reviewed and no additional complaints, except as documented Eyes Eyes: Reports system reviewed and no additional complaints, except as documented ENT Ears, Nose, Mouth, and Throat: Reports system reviewed and no additional complaints, except as documented Cardiovascular Cardiovascular: Reports system reviewed and no additional complaints, except as documented Respiratory Respiratory: Reports system reviewed and no additional complaints, except as documented Gastrointestinal Gastrointestingal: Reports system reviewed and no additional complaints, except as documented Genitourinary Male Genitourinary: Reports system reviewed and no additional complaints, except as documented Comments: perineal abscess Musculoskeletal Musculoskeletal: Reports system reviewed and no additional complaints, except as documented Integumentary/Breasts Skin/Breast: Reports system reviewed and no additional complaints, except as documented and Reports furuncle Neurologic Neurologic: Reports system reviewed and no additional complaints, except as documented Endocrine Endocrine: Reports system reviewed and no additional complaints, except as documented Hematologic/Lymphatic Henatologic/Lymphatic: Reports system reviewed and no additional complaints, except as documented Allergic/Immunologic Allergic/Immunologic: Reports system reviewed and no additional complaints, except as documented Physical Exam General General appearance: alert and in no apparent distress Head Head exam: atraumatic and normocephalic Eye Eye exam: Present normal appearance ENT ENT exam: Present normal exam and normal oropharynx Neck Neck exam: Present normal inspection Chest Chest inspection: Present normal inspection and symmetric chest wall rise Respiratory Respiratory exam: Present normal lung sounds bilaterally Cardiovascular Cardiovascular exam: Present regular rate and normal rhythm Abdominal Exam Abdominal exam: Present soft Expanded Exam exam: Present other (perineal abscess) Extremities Exam Extremities exam: Present normal inspection Back Exam Back exam: Present normal inspection Neurological Exam Neurological exam: Present alert and oriented X3 Psychiatric Psychiatric exam: Present normal affect and normal mood Skin Skin exam: Present warm, dry and intact Lymphatic Lymphatic Findings: no adenopathy Medical Decision Making Medical Records Screening: Per USPSTF and CDC recommendations, given the prevalence of disease in our region, it is our hospital?s policy to screen for HIV and viral Hepatitis for all patients aged 18 and over and those with ongoing risk factors. Phil Inquiry Pt receiving controlled substance: No Phil was queried for this patient: No Vital Signs: 09/22/24 15:00 Temperature 98.3 F Temperature Source Oral Pulse Rate [Left Brachial] 76 Respiratory Rate 19 Blood Pressure [Left Arm] 136/89 Blood Pressure Mean [Left Arm] 104 Blood Pressure Source [Left Arm] Automatic Cuff Blood Pressure Position [Left Arm] Sitting 02 Sat by Pulse Oximetry 98 Oxygen Delivery Method Room Air
[2024-09-22 16:06] VITALS: BP 136/89; PULSE 76; RESP 19; TEMP 36.8; O2SAT 98
== END 2024-09-22 16:08 | disposition home or self-care (01) ==
PROVIDERS: Emergency Provider Nurse Practitioner Family
DX: L02.215 Cutaneous abscess of perineum (principal)
CPT/HCPCS: 99213; G0381